=== PATIENT | male | born 1955 | race Caucasian/White ===

== ENCOUNTER 2016-12-25 08:44 | Emergency (ER) | payer BC ==
[2016-12-25 09:14] VITALS: BP 142/89
--- NOTE | 2016-12-25 09:24 | UC ---
Respiratory Complaint HPI - HPI Summary HPI Summary: 61 yo male with sinus pressure and pain/post nasal drip and cough x 2 weeks no fever he has had chills no CP or SOB - History of Current Complaint Chief Complaint: UCRespiratory Stated Complaint: COUGH/STUFFY NOSE Time Seen by Provider: 12/25/16 09:17 Hx Obtained From: Patient Onset/Duration: Gradual Onset, Lasting Weeks Timing: Constant Severity Initially: Mild Severity Currently: Moderate Pain Intensity: 4 Pain Scale Used: 0-10 Numeric Character: Cough: Nonproductive Aggravating Factors: Nothing Alleviating Factors: Nothing Associated Signs And Symptoms: Positive: Nasal Congestion, Hoarseness, Sinus Discomfort - Allergies/Home Medications Allergies/Adverse Reactions: Allergies Allergy/AdvReac Type Severity Reaction Status Date / Time No Known Allergies Allergy Verified 12/25/16 09:05 Home Medications: Home Medications Chlorpheniramine-Dm [Coricidin Hbp Cough & Col] 1 tab PO Q6H PRN 12/25/16 [ History Confirmed 12/25/16] PMH/Surg Hx/FS Hx/Imm Hx Previously Healthy: Yes Endocrine History Of: Reports: Diabetes - TYPE 2 CONTROL WITH SUPPLEMENTS AND EXERCISE Cardiovascular History Of: Denies: Hypertension, Pacemaker/ICD Respiratory History Of: Denies: Asthma - Surgical History Surgical History: Yes Surgery Procedure, Year, and Place: 2004 LEFT KNEE MENISCAL REPAIR, [place]. 2013 WISDOM TOOTH EXTRACTION, [place]. RIGHT MINISCAL REPAIR 2015 - Family History Known Family History: Positive: Hypertension, Diabetes - Social History Alcohol Use: Occasionally Substance Use Type: None Smoking Status (MU): Never Smoked Tobacco - Immunization History Most Recent Influenza Vaccination: NOT IN Review of Systems Constitutional: Negative Skin: Negative Eyes: Negative ENT: Nasal Discharge Respiratory: Cough Cardiovascular: Negative Gastrointestinal: Negative Genitourinary: Negative Motor: Negative Neurovascular: Negative Musculoskeletal: Negative Neurological: Negative Psychological: Negative All Other Systems Reviewed And Are Negative: Yes Physical Exam Triage Information Reviewed: Yes Appearance: Well-Appearing, No Pain Distress, Well-Nourished Vital Signs: Initial Vital Signs Temp 98.2 F 12/25/16 09:07 Pulse 90 12/25/16 09:07 Resp 16 12/25/16 09:07 BP 142/89 12/25/16 09:07 Pulse Ox 98 12/25/16 09:07 Vital Signs Reviewed: Yes Eyes: Positive: Conjunctiva Clear ENT: Positive: Hearing grossly normal, Nasal congestion, Nasal drainage, TMs normal. Negative: Tonsillar exudate, Trismus, Muffled/hoarse voice Neck: Positive: Supple, Nontender, No Lymphadenopathy Respiratory: Positive: Lungs clear, Normal breath sounds, No respiratory distress, No accessory muscle use Cardiovascular: Positive: RRR, No Murmur. Negative: Tachycardia, Bradycardia Musculoskeletal: Positive: ROM Intact, No Edema Neurological: Positive: Alert Psychological Exam: Normal Skin: Positive: rashes - impetiginous rash below left nostril UC Diagnostic Evaluation - Laboratory O2 Sat by Pulse Oximetry: 98 - normal/not hypoxic Respiratory Course/Dx - Differential Dx/Diagnosis Provider Diagnoses: acute sinusitis Discharge - Discharge Plan Condition: Stable Disposition: HOME Prescriptions: Mupirocin 2% OINT* [Bactroban 2 % Oint*] 1 applic TOPICAL TID #1 tube ceFUROXime TAB(*) [Ceftin TAB(*)] 250 mg PO BID #20 tab Patient Education Materials: Impetigo (ED), Sinusitis (ED) Referrals: Arjun Astudillo MD [Primary Care Provider] - If Needed Additional Instructions: warm facial compresses saline nasal spray twice daily recheck next week if not better
== END 2016-12-25 09:36 | disposition home or self-care (01) ==
LOC: UCCORT 08:44
DX: J01.90 Acute sinusitis, unspecified (principal); R21 Rash and other nonspecific skin eruption; E11.9 Type 2 diabetes mellitus without complications
CPT/HCPCS: 99212; G0463

== ENCOUNTER 2017-05-05 08:46 | Emergency (ER) | payer BC ==
[2017-05-05 09:10] VITALS: BP 142/83
--- NOTE | 2017-05-05 09:36 | UC ---
Ear Complaint HPI - HPI Summary HPI Summary: pt presents with c/o bilateral hearing loss X 10 -14 days. Pt has history of cerumen impaction and is concerned that ears are "full now" - History of Current Complaint Stated Complaint: BILATERAL EAR COMPLAINT Time Seen by Provider: 05/05/17 08:58 Hx Obtained From: Patient Onset/Duration: Gradual Onset, Lasting Weeks Severity Initially: Mild Severity Currently: Mild Aggravating Factors: Nothing Alleviating Factors: Nothing Associated Signs/Symptoms: Positive: Hearing Loss - Allergies/Home Medications Allergies/Adverse Reactions: Allergies Allergy/AdvReac Type Severity Reaction Status Date / Time No Known Allergies Allergy Verified 05/05/17 09:04 PMH/Surg Hx/FS Hx/Imm Hx Previously Healthy: Yes - Surgical History Surgical History: Yes Surgery Procedure, Year, and Place: 2004 LEFT KNEE MENISCAL REPAIR, [place]. 2013 WISDOM TOOTH EXTRACTION, OFFICE. RIGHT KNEE MENISCAL REPAIR 2014 - Family History Known Family History: Positive: Hypertension, Diabetes - Social History Alcohol Use: Occasionally Substance Use Type: None Smoking Status (MU): Never Smoked Tobacco - Immunization History Most Recent Influenza Vaccination: NOT IN Review of Systems Constitutional: Negative Skin: Negative Eyes: Negative ENT: Ear Ache, Other - bilateral hearing loss and feeling of "fullness" in bilateral ears. left ear c/o more "fullness" and less able to hear in left ear. Respiratory: Negative Cardiovascular: Negative Gastrointestinal: Negative Genitourinary: Negative Motor: Negative Neurovascular: Negative Musculoskeletal: Negative Neurological: Negative Psychological: Negative All Other Systems Reviewed And Are Negative: Yes Physical Exam Triage Information Reviewed: Yes Appearance: Well-Appearing Vital Signs: Initial Vital Signs Temp 98.1 F 05/05/17 09:06 Pulse 79 05/05/17 09:06 Resp 14 05/05/17 09:06 BP 142/83 05/05/17 09:06 Pulse Ox 99 05/05/17 09:06 Vital Signs Reviewed: Yes Eye Exam: Normal ENT Exam: Other ENT: Positive: Other: - cerumen bilateral ear canals Neck exam: Normal Respiratory Exam: Normal Cardiovascular Exam: Normal Musculoskeletal Exam: Normal Neurological Exam: Normal Psychological Exam: Normal Skin Exam: Normal Ear Complaint Course/Dx - Differential Dx/Diagnosis Differential Diagnosis/HQI/PQRI: Cerumen Impaction Provider Diagnoses: bilateral cerumen impaction. cerumen removal, bilateral ears Discharge - Discharge Plan Condition: Stable Disposition: HOME Patient Education Materials: Cerumen Impaction (ED) Referrals: Arjun Astudillo MD [Primary Care Provider] - If Needed
== END 2017-05-05 09:41 | disposition home or self-care (01) ==
LOC: UCCORT 08:46
DX: H61.23 Impacted cerumen, bilateral (principal)
CPT/HCPCS: 69210; 99211; G0463

== ENCOUNTER 2018-03-08 10:35 | Emergency (ER) | payer BC, OTHER ==
[2018-03-08 10:55] VITALS: BP 158/92
--- NOTE | 2018-03-08 11:49 | UC ---
Skin Complaint HPI - HPI Summary HPI Summary: Pt here w/ Lt lateral thumb redness, swelling and tenderness x 2 days in cuticle area. Admits he clipped his cuticles here a few days prior. Imms are UTD. Has diabetes which is controlled by diet and denies recent increase in blood glucose since this started. Denies numbness, tingling, weakness and admits some purulent drainage came out while here today. Has not tried soaks, ibuprofen, etc since here. - History of Current Complaint Hx Obtained From: Patient Pain Intensity: 6 <Elmira Renae - Last Filed: 03/08/18 12:46> <Hoa Adams - Last Filed: 03/08/18 20:36> - History of Current Complaint Chief Complaint: UCSkin Time Seen by Provider: 03/08/18 11:31 Stated Complaint: LEFT THUMB COMPLAINT - Allergy/Home Medications Allergies/Adverse Reactions: Allergies Allergy/AdvReac Type Severity Reaction Status Date / Time No Known Allergies Allergy Verified 03/08/18 10:55 Home Medications: Home Medications NK [No Home Medications Reported] 03/08/18 [History Confirmed 03/08/18] Review of Systems Constitutional: Negative Skin: Other - thumb irritation Motor: Negative Neurovascular: Negative Musculoskeletal: Negative Neurological: Negative Psychological: Negative Is Patient Immunocompromised?: No All Other Systems Reviewed And Are Negative: Yes <Elmira Renae - Last Filed: 03/08/18 12:46> PMH/Surg Hx/FS Hx/Imm Hx Previously Healthy: Yes Endocrine History: Diabetes - "borderline" -monitored with diet control - Surgical History Surgical History: Yes Surgery Procedure, Year, and Place: 2004 LEFT KNEE MENISCAL REPAIR, [place]. 2013 WISDOM TOOTH EXTRACTION, OFFICE. RIGHT KNEE MENISCAL REPAIR 2015 - Family History Known Family History: Positive: Hypertension, Diabetes - Social History Alcohol Use: Occasionally Substance Use Type: None Smoking Status (MU): Never Smoked Tobacco - Immunization History Most Recent Influenza Vaccination: NOT IN <Elmira Renae - Last Filed: 03/08/18 12:46> Physical Exam Triage Information Reviewed: Yes Appearance: Well-Appearing, No Pain Distress, Well-Nourished Vital Signs: Initial Vital Signs Temp 97.1 F 03/08/18 10:51 Pulse 58 03/08/18 10:51 Resp 12 05/13/18 10:51 BP 158/92 03/08/18 10:51 Pulse Ox 100 03/08/18 10:51 Vital Signs Reviewed: Yes Cardiovascular Exam: Normal Musculoskeletal Exam: Normal Musculoskeletal: Positive: Strength Intact, ROM Intact Neurological Exam: Normal Psychological Exam: Normal Skin Exam: Other - mild and focal erythema along lateral aspect of Lt thumb - barely TTP - appears to have dried purulent drainage here - no streaking <Elmira Renae - Last Filed: 03/08/18 12:46> Vital Signs: Initial Vital Signs Temp 97.1 F 03/08/18 10:51 Pulse 58 03/08/18 10:51 Resp 12 03/08/18 10:51 BP 158/92 03/08/18 10:51 Pulse Ox 100 03/08/18 10:51 <Hoa Adams - Last Filed: 03/08/18 20:36> Re-Evaluation - Re-Evaluation First Eval Change: Improved - purulent drainage expressed after warm soak - cx collected - erythema and edema improved <Elmira Renae - Last Filed: 03/08/18 12:46> Course/Dx - Course Course Of Treatment: Supportive care. Wound cx attained - if worse, will call in anbx pending cx results. Pt agrees w/ plan - Diagnoses Provider Diagnoses: Paronychia Lt thumb, mild <Elmira Renae - Last Filed: 03/08/18 12:46> Discharge - Sign-Out/Discharge Documenting (check all that apply): Discharge/Admit/Transfer - Billing Disposition and Condition Condition: STABLE Disposition: HOME <Elmira Renae - Last Filed: 03/08/18 12:46> - Billing Disposition and Condition Condition: STABLE Disposition: HOME <Hoa Adams - Last Filed: 03/08/18 20:36> - Discharge Plan Condition: Stable Disposition: HOME Patient Education Materials: Paronychia (ED) Referrals: Arjun Astudillo MD [Primary Care Provider] - Additional Instructions: Continue to soak your finger in warm soaks and milk to express drainage as needed Rest, elevate and take ibuprofen with food for pain/swelling *If worse, an antibiotic may be called into your pharmacy - a culture was sent today and will return in 2 days. Call if worse to receive antibiotic therapy. Attestation Statement User Type: Provider - I was available for consult. This patient was seen by the [facility]. The patient was not presented to, seen by, or examined by me. -Yaneli <Hoa Adams - Last Filed: 03/08/18 20:36>
--- NOTE | 2018-03-14 07:17 | UC ---
- Progress Note Progress Note: + suzanna gutierrez Pt NKDA sent in Rx doxy please call pt 03/14/2018n 7:16am santo Re-Evaluation - Re-Evaluation First Eval Change: Improved - purulent drainage expressed after warm soak - cx collected - erythema and edema improved Discharge - Sign-Out/Discharge Documenting (check all that apply): Discharge/Admit/Transfer - Discharge Plan Condition: Stable Disposition: HOME Patient Education Materials: Paronychia (ED) Referrals: Arjun Astudillo MD [Primary Care Provider] - Additional Instructions: Continue to soak your finger in warm soaks and milk to express drainage as needed Rest, elevate and take ibuprofen with food for pain/swelling *If worse, an antibiotic may be called into your pharmacy - a culture was sent today and will return in 2 days. Call if worse to receive antibiotic therapy. - Billing Disposition and Condition Condition: STABLE Disposition: HOME
== END 2018-03-08 12:56 | disposition home or self-care (01) ==
LOC: UCCORT 10:35
DX: L03.012 Cellulitis of left finger (principal); E11.9 Type 2 diabetes mellitus without complications
CPT/HCPCS: 87070; 87077; 87186; 87205; 87640; 87641; 99211; G0463

== ENCOUNTER 2018-10-12 09:28 | Emergency (ER) | payer BC, OTHER ==
[2018-10-12 09:58] VITALS: BP 158/96
--- NOTE | 2018-10-12 10:30 | ED ---
Throat Pain/Nasal Congestion - HPI Summary HPI Summary: 63 yr old male with the complaint of sinus pressure, post nasal drip, and persistent cold and cough symptoms that have waxed and waned over the past month. He states he is around ill exposures at work. He denies ear pain. No SOB, no CP. No dizziness. No headache. No other complaints. He has been using over the counter meds for symptom relief. - History of Current Complaint Chief Complaint: UCRespiratory Time Seen by Provider: 10/12/18 10:07 - Allergies/Home Medications Allergies/Adverse Reactions: Allergies Allergy/AdvReac Type Severity Reaction Status Date / Time No Known Allergies Allergy Verified 10/12/18 09:56 Home Medications: Home Medications Chlorpheniramine/Dextromethorp [Coricidin Hbp Cough & Col] 1 tab PO Q6H PRN [History Confirmed 10/12/18] PMH/Surg Hx/FS Hx/Imm Hx Endocrine/Hematology History: Reports: Hx Diabetes - TYPE 2 CONTROL WITH SUPPLEMENTS AND EXERCISE Cardiovascular History: Denies: Hx Hypertension, Hx Pacemaker/ICD Respiratory History: Denies: Hx Asthma History: Denies: Hx Renal Disease Sensory History: Denies: Hx Contacts or Glasses - GLASSES, Hx Hearing Aid Opthamlomology History: Denies: Hx Contacts or Glasses - GLASSES Psychiatric History: Denies: Hx Panic Disorder - Surgical History Surgery Procedure, Year, and Place: 2004 LEFT KNEE MENISCAL REPAIR, [place]. 2013 WISDOM TOOTH EXTRACTION, OFFICE. RIGHT KNEE MENISCAL REPAIR 2015 Hx Anesthesia Reactions: No Infectious Disease History: No Infectious Disease History: Denies: Traveled Outside the in Last 30 Days - Family History Known Family History: Positive: Hypertension, Diabetes - Social History Occupation: Employed Full-time Alcohol Use: Occasionally Substance Use Type: Reports: None Smoking Status (MU): Never Smoked Tobacco Review of Systems Constitutional: Negative Positive: Sore Throat, Ear Ache, Nasal Discharge Positive: Cough All Other Systems Reviewed And Are Negative: Yes Physical Exam Triage Information Reviewed: Yes Vital Signs On Initial Exam: Initial Vitals Temp Pulse Resp BP Pulse Ox 98.6 F 86 16 158/96 98 10/12/18 09:54 10/12/18 09:54 10/12/18 09:54 10/12/18 09:54 10/12/18 09:54 Vital Signs Reviewed: Yes Appearance: Positive: Well-Appearing, No Pain Distress Skin: Positive: Warm, Skin Color Reflects Adequate Perfusion Eyes: Positive: EOMI ENT: Positive: Pharyngeal erythema, Nasal congestion, Nasal drainage, TMs normal , Sinus tenderness Neck: Positive: Nontender Respiratory/Lung Sounds: Positive: Clear to Auscultation, Breath Sounds Present Cardiovascular: Positive: RRR. Negative: Murmur Abdomen Description: Positive: Nontender Musculoskeletal: Positive: Strength/ROM Intact Neurological: Positive: Sensory/Motor Intact, Alert, Oriented to Person Place, Time, CN Intact II-III, Normal Gait, Speech Normal Psychiatric: Positive: Normal - [place] Coma Scale Best Eye Response: 4 - Spontaneous Best Motor Response: 6 - Obeys Commands Best Verbal Response: 5 - Oriented Coma Scale Total: 15 Diagnostics - Vital Signs Vital Signs Temp Pulse Resp BP Pulse Ox 10/12/18 09:54 98.6 F 86 16 158/96 98 - Laboratory Lab Statement: Any lab studies that have been ordered have been reviewed, and results considered in the medical decision making process. EENT Course/Dx - Course Course Of Treatment: 63 yr old male with Sinusitis. Rx with Biaxin. - Diagnoses Provider Diagnoses: Sinusitis, Hypertension Discharge - Sign-Out/Discharge Documenting (check all that apply): Patient Departure All imaging exams completed and their final reports reviewed: No Studies - Discharge Plan Condition: Good Disposition: HOME Prescriptions: Clarithromycin TAB* [Biaxin 500 MG TAB*] 500 mg PO BID #20 tab Patient Education Materials: Sinusitis (ED), Hypertension (ED) Referrals: Arjun Astudillo MD [Primary Care Provider] - 2 Days - Billing Disposition and Condition Condition: GOOD Disposition: Home
== END 2018-10-12 10:35 | disposition home or self-care (01) ==
LOC: UCCORT 09:28
DX: E11.9 Type 2 diabetes mellitus without complications (principal); J32.9 Chronic sinusitis, unspecified; I10 Essential (primary) hypertension
CPT/HCPCS: 99212; G0463